=== PATIENT | male | born 2000 | race Caucasian/White ===

== ENCOUNTER 2020-09-04 19:07 | Emergency (ER) | payer BC ==
--- NOTE | 2020-09-04 19:41 | EDM.PDOC ---
ED HPI GENERAL MEDICAL PROBLEM - General Chief Complaint: ENT Problem Stated Complaint: EAR PAIN Time Seen by Provider: 09/04/20 19:19 Source of Information: Reports: Patient, RN Notes Reviewed History Limitations: Reports: No Limitations - History of Present Illness INITIAL COMMENTS - FREE TEXT/NARRATIVE: Patient is a 20-year-old male presenting to the emergency department complaints of right ear pain. He reports that he was swimming in [place] today and this evening has developed pain. He did report at one point there was fluid draining from the ear. He does have myringotomy tube in this ear which was placed approximately 2 years ago. Denies any fever or chills. Denies pain in his left ear. 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 ED EXAM, ENT - Physical Exam Exam: See Below General Appearance: Alert, WD/WN, No Apparent Distress Ears: Canal Discharge (scant purulent), Canal Swelling (mild with errythema), Other (Myringotomy tube intact). No: TM Bulging Respiratory/Chest: No Respiratory Distress, Lungs Clear, Normal Breath Sounds, No Accessory Muscle Use, Chest Non-Tender Cardiovascular: Normal Peripheral Pulses, Regular Rate, Rhythm, No Edema, No Gallop, No JVD, No Murmur, No Rub Neurological: Alert, Oriented, CN II-XII Intact, Normal Cognition, Normal Gait, Normal Reflexes, No Motor/Sensory Deficits Psychiatric: Normal Affect, Normal Mood Skin: Warm, Dry, Intact, Normal Color, No Rash Course - Vital Signs Last Recorded V/S: Last Vital Signs Temp 98.6 F 09/04/20 19:23 Pulse 88 09/04/20 19:23 Resp 16 09/04/20 19:23 BP 152/96 H 09/04/20 19:23 Pulse Ox 100 09/04/20 19:23 - Re-Assessments/Exams Free Text/Narrative Re-Assessment/Exam: Patient is a 20-year-old male presenting to the emergency department with complaints of pain to his right ear after [place]. On exam, he does have a scant amount of purulent discharge in the canal as well as mild swelling with erythema. Myringotomy tube is intact. Patient is suffering from otitis externa. Since he does have myringotomy tubes, we will not use acetic acid for treatment of this. I will start him on Ciprodex drops. Prescription for this will be sent to his pharmacy. Discharge instructions as documented. Departure - Departure Time of Disposition: 19:39 Disposition: Home, Self-Care 01 Condition: Good Clinical Impression: Otitis externa Qualifiers: Otitis externa type: swimmer's ear Chronicity: acute Laterality: right Qualified Code(s): H60.331 - Swimmer's ear, right ear - Discharge Information *PRESCRIPTION DRUG MONITORING PROGRAM REVIEWED*: No *COPY OF PRESCRIPTION DRUG MONITORING REPORT IN PATIENT GRANT: No Prescriptions: Ciprofloxacin/Dexamethasone [Ciprodex Otic Susp] 4 drop OT BID 7 Days #1 bottle Instructions: Otitis Externa Referrals: PCP,None [Primary Care Provider] - Additional Instructions: You were seen in the emergency department today for pain to your right ear after swimming. Exam did show that you have an external ear infection. You have been started on Ciprodex eardrops. Take these as prescribed. Also recommend using Flonase pain in your right nare to help facilitate drainage of fluid that may have entered through your myringotomy tube. If your symptoms fail to improve, recommend follow-up in the clinic. Return to ER as needed. Sepsis Event Note (ED) - Evaluation Sepsis Screening Result: No Definite Risk - Focused Exam Vital Signs: Vital Signs Temp Pulse Resp BP Pulse Ox 09/04/20 19:23 98.6 F 88 16 152/96 H 100
== END 2020-09-04 19:49 | disposition home or self-care (01) ==
LOC: JD.ED 19:07
DX: H60.331 Swimmer's ear, right ear (principal); Z91.041 Radiographic dye allergy status
CPT/HCPCS: 99282; 99283

== ENCOUNTER 2023-07-11 06:54 | Emergency (ER) | payer OTHER | END 2023-07-11 08:05 | disposition home or self-care (01) | LOC: JD.ED 06:54 | DX: L20.9 Atopic dermatitis, unspecified (principal); Z88.8 Allergy status to other drugs, medicaments and biological substances; Z91.041 Radiographic dye allergy status; Z79.899 Other long term (current) drug therapy | CPT/HCPCS: 99283 ==

== ENCOUNTER 2024-03-14 17:15 | Emergency (ER) | payer OTHER ==
[2024-03-14] MEDS: Ketorolac 60 MG/2 ML SDV IM ONE (18:53)
== END 2024-03-14 20:22 | disposition home or self-care (01) ==
LOC: JD.ED 17:15
DX: S82.432A Displaced oblique fracture of shaft of left fibula, initial encounter for closed fracture (principal); Z88.8 Allergy status to other drugs, medicaments and biological substances; W19.XXXA Unspecified fall, initial encounter
CPT/HCPCS: 73590-26-LT; 73590-LT; 73610-26-LT; 73610-LT; 99283

== ENCOUNTER 2025-01-13 07:50 | Emergency (ER) | payer OTHER | END 2025-01-13 08:50 | disposition home or self-care (01) | LOC: JD.ED 07:50 | DX: H66.004 Acute suppurative otitis media without spontaneous rupture of ear drum, recurrent, right ear (principal); Z91.041 Radiographic dye allergy status; Z79.899 Other long term (current) drug therapy | CPT/HCPCS: 99282 ==